=== PATIENT | female | born 1960 ===

== ENCOUNTER 2018-09-28 14:46 | Outpatient (CLI) | payer OTHER ==
[~2018-09-28] VITALS: Ht 167.6 cm; Wt 68.0 kg
== END 2018-09-28 15:00 | disposition home or self-care (01) ==
LOC: OFIC 805 14:46
DX: R49.0 Dysphonia (principal); M54.2 Cervicalgia; R05 Cough; K21.9 Gastro-esophageal reflux disease without esophagitis